=== PATIENT | male | born 1990 | race Caucasian/White ===

== ENCOUNTER 2016-12-01 18:48 | Inpatient (IN) | payer OTHER ==
[~2016-12-01] VITALS: Ht 175.3 cm; Wt 115.1 kg
[~2016-12-01 18:48] MED LIST: DIVA500T35 PO; FLUO-191 PO; QUET200T PO; QUET300T2 PO
[2016-12-01] MEDS ORDERED: PERTUSS(ACELL),DIPH,TET VAC/PF 0.5 ML VIAL IM ONE (20:15)
[2016-12-01] MEDS ORDERED: VANCOMYCIN HCL 1 GM/D5% WATER 200 ML IV ONE ×2 (20:15→23:00)
[2016-12-01 20:35] LABS: BASOPHILS % (AUTO) 0.7 % (0.0-2.0); EOSINOPHILS % (AUTO) 1.5 % (1.0-6.0); HEMATOCRIT 39.6 % (41-53); HEMOGLOBIN 13.2 g/dL (13.5-17.5); LYMPHOCYTES # (AUTO) 1.2 K/uL (1.0-4.8); LYMPHOCYTES % (AUTO) 13.6 % (22.0-44.0); MEAN CORPUSCULAR HEMOGLOBIN 29.6 pg (26.0-34.0); MEAN CORPUSCULAR HGB CONC 33.4 G/dL (31.0-37.0); MEAN CORPUSCULAR VOLUME 89 fL (80-100); MONOCYTES # (AUTO) 0.4 K/uL (0.1-1.0); MONOCYTES % (AUTO) 5.2 % (2.0-9.0); NEUTROPHILS # (AUTO) 6.8 K/uL (1.8-7.7); PLATELET COUNT (AUTO) 409 K/uL (150-450); RED BLOOD CELL COUNT(AUTO) 4.47 MIL/uL (4.50-5.90); RED CELL DISTRIBUTION WIDTH 13.3 % (11.5-14.5); WHITE BLOOD COUNT (AUTO) 8.6 K/uL (4.5-11.0)
[2016-12-01 20:44] LABS: ANION GAP 12 mmol/L (8-16); CALCIUM, TOTAL 8.4 mg/dL (8.8-10.5); CARBON DIOXIDE 25 mmol/L (22-29); CHLORIDE 101 mmol/L (98-107); CREATININE 0.67 mg/dL (0.60-1.30); GLOMERULAR FILTR. RATE CALC > 60 mL/min (>60); POTASSIUM 3.7 mmol/L (3.5-5.1); SODIUM SERUM 138 mmol/L (136-145); UREA NITROGEN, BLOOD 12 mg/dL (7-18)
[2016-12-01 20:51] LABS: ALANINE AMINOTRANSFERASE 51 U/L (12-78); ALBUMIN 3.3 g/dL (3.4-5.0); ASPARTATE AMINOTRANSFERASE 32 U/L (15-37); BILIRUBIN,TOTAL 0.8 mg/dL (0.1-1.0); TOTAL PROTEIN, SERUM 7.3 g/dL (6.4-8.2)
[2016-12-01 20:52] LABS: LACTIC ACID 0.6 mmol/L (0.4-2.0)
[2016-12-01] MEDS ORDERED: MAGNESIUM HYDROXIDE SUSPENSION 30 ML UDCUP PO PRN (22:00)
[2016-12-01] MEDS ORDERED: OxyCODONE HCL/ACETAMINOPHEN 5-325 MG TABLET PO PRN (22:00)
[2016-12-01] MEDS ORDERED: ACETAMINOPHEN 325 MG TABLET PO PRN (22:00)
[2016-12-01] MEDS ORDERED: SODIUM CHLORIDE 0.9% 1,000 ML IV ONE (22:15)
[2016-12-02 05:07] LABS: ANION GAP 10 mmol/L (8-16); CALCIUM, TOTAL 8.8 mg/dL (8.8-10.5); CARBON DIOXIDE 25 mmol/L (22-29); CHLORIDE 104 mmol/L (98-107); CREATININE 0.67 mg/dL (0.60-1.30); GLOMERULAR FILTR. RATE CALC > 60 mL/min (>60); POTASSIUM 3.9 mmol/L (3.5-5.1); SODIUM SERUM 139 mmol/L (136-145); UREA NITROGEN, BLOOD 8 mg/dL (7-18)
[2016-12-02] MEDS: VANCOMYCIN HCL 1.5 GM in DEXTROSE 5%-WATER 250 ML IV SCH ×2 (07:44→16:39)
[2016-12-02] MEDS: DOCUSATE SODIUM 100 MG CAPSULE PO SCH ×2 (08:11→21:25)
[2016-12-02] MEDS: PANTOPRAZOLE SODIUM 40 MG DR TABLET PO SCH (08:11)
[2016-12-02 09:46] VITALS: BP 125/77
[2016-12-02 12:08] VITALS: BP 135/76
[2016-12-02] MEDS: MORPHINE SULFATE 2 MG/ML SYRINGE IVP PRN ×3 (14:24→22:24)
[2016-12-02 15:54] VITALS: BP 121/61
[2016-12-02] MEDS ORDERED: INFLUENZA VIRUS VACCINE QVS 2016-17 (3YR+)/PF 60 MCG/0.5 ML SYRINGE IM ONE (19:30)
[2016-12-02 20:19] VITALS: BP 141/67
[2016-12-02] MEDS: QUEtiapine FUMARATE 200 MG TABLET PO SCH (21:25)
[2016-12-02 23:17] VITALS: BP 138/72
[2016-12-02] MEDS ORDERED: SODIUM CHLORIDE 0.9% 500 ML IV ONE (23:36)
[2016-12-03] MEDS: VANCOMYCIN HCL 1.5 GM in DEXTROSE 5%-WATER 250 ML IV SCH ×4 (01:21→23:29)
[2016-12-03 04:58] VITALS: BP 119/56
[2016-12-03 06:22] LABS: ANION GAP 8 mmol/L (8-16); CALCIUM, TOTAL 8.7 mg/dL (8.8-10.5); CARBON DIOXIDE 27 mmol/L (22-29); CHLORIDE 105 mmol/L (98-107); CREATININE 0.77 mg/dL (0.60-1.30); GLOMERULAR FILTR. RATE CALC > 60 mL/min (>60); POTASSIUM 3.5 mmol/L (3.5-5.1); SODIUM SERUM 140 mmol/L (136-145); UREA NITROGEN, BLOOD 6 mg/dL (7-18)
[2016-12-03 08:31] VITALS: BP 145/77
[2016-12-03] MEDS: QUEtiapine FUMARATE 200 MG TABLET PO SCH ×3 (08:44→20:08)
[2016-12-03] MEDS: DIVALPROEX SODIUM 500 MG DR TABLET PO SCH (08:44)
[2016-12-03] MEDS: FLUoxetine HCL 20 MG CAPSULE PO SCH (08:44)
[2016-12-03] MEDS: DOCUSATE SODIUM 100 MG CAPSULE PO SCH ×2 (08:44→20:08)
[2016-12-03] MEDS: PANTOPRAZOLE SODIUM 40 MG DR TABLET PO SCH (08:44)
[2016-12-03] MEDS: MORPHINE SULFATE 2 MG/ML SYRINGE IVP PRN ×2 (08:46→16:33)
[2016-12-03 11:48] VITALS: BP 141/76
[2016-12-03 16:13] VITALS: BP 144/77
[2016-12-03 23:34] VITALS: BP 142/89
[2016-12-04 06:55] LABS: ANION GAP 10 mmol/L (8-16); CALCIUM, TOTAL 8.8 mg/dL (8.8-10.5); CARBON DIOXIDE 27 mmol/L (22-29); CHLORIDE 105 mmol/L (98-107); CREATININE 0.71 mg/dL (0.60-1.30); GLOMERULAR FILTR. RATE CALC > 60 mL/min (>60); POTASSIUM 3.8 mmol/L (3.5-5.1); SODIUM SERUM 142 mmol/L (136-145); UREA NITROGEN, BLOOD 8 mg/dL (7-18)
[2016-12-04 07:42] VITALS: BP 133/70
[2016-12-04] MEDS: QUEtiapine FUMARATE 200 MG TABLET PO SCH ×2 (08:00→15:56)
[2016-12-04] MEDS: DIVALPROEX SODIUM 500 MG DR TABLET PO SCH (08:00)
[2016-12-04] MEDS: PANTOPRAZOLE SODIUM 40 MG DR TABLET PO SCH (08:01)
[2016-12-04] MEDS: DOCUSATE SODIUM 100 MG CAPSULE PO SCH (08:01)
[2016-12-04] MEDS: VANCOMYCIN HCL 1.5 GM in DEXTROSE 5%-WATER 250 ML IV SCH ×2 (08:01→15:55)
[2016-12-04] MEDS: FLUoxetine HCL 20 MG CAPSULE PO SCH (08:01)
[2016-12-04 11:41] VITALS: BP 134/69
[2016-12-04] MEDS: MORPHINE SULFATE 2 MG/ML SYRINGE IVP PRN (14:58)
[2016-12-04 15:14] VITALS: BP 144/93
[2016-12-04] MEDS ORDERED: OxyCODONE HCL/ACETAMINOPHEN 10-325 MG TABLET PO ONE (18:00)
[2016-12-04] MEDS ORDERED: OxyCODONE HCL/ACETAMINOPHEN 5-325 MG TABLET PO ONE (18:15)
[2016-12-04] MEDS ORDERED: DOXY100C PO (18:18)
[2016-12-04] MEDS ORDERED: PERCT10 PO ×2 (18:18→18:19)
== END 2016-12-04 18:30 | disposition home or self-care (01) | DRG 383 ==
LOC: EMS 18:50 → 6N 12-02 04:00
PROVIDERS: ADMIT Internal Medicine; ATTEND Internal Medicine
DX: L03.113 Cellulitis of right upper limb (principal); Q60.0 Renal agenesis, unilateral; F11.20 Opioid dependence, uncomplicated; E66.9 Obesity, unspecified; F41.9 Anxiety disorder, unspecified; F32.9 Major depressive disorder, single episode, unspecified; F17.210 Nicotine dependence, cigarettes, uncomplicated; F20.9 Schizophrenia, unspecified; F15.10 Other stimulant abuse, uncomplicated; F19.10 Other psychoactive substance abuse, uncomplicated; F12.90 Cannabis use, unspecified, uncomplicated; Z68.37 Body mass index [BMI] 37.0-37.9, adult
CPT/HCPCS: 83605; 87040; 90471; 90715; 96365; 96366; 99285; J2270; J3370; J7040; J7060

== ENCOUNTER 2017-01-07 02:23 | Inpatient (IN) | payer MEDICAID, OTHER ==
[~2017-01-07] VITALS: Ht 177.8 cm; Wt 115.5 kg
[~2017-01-07 02:23] MED LIST changes: +DOXY100C PO; +PERCT10 PO
[2017-01-07] MEDS ORDERED: DiphenhydrAMINE HCL 50 MG/ML VIAL ONE (02:35)
[2017-01-07] MEDS ORDERED: HALOPERIDOL LACTATE 5 MG/ML VIAL ONE (02:35)
[2017-01-07] MEDS ORDERED: LORazepam 2 MG/ML VIAL ONE (02:35)
[2017-01-07] MEDS ORDERED: DIVA500T35 PO ×2 (02:42)
[2017-01-07] MEDS ORDERED: BUSP15 PO (02:42)
[2017-01-07] MEDS ORDERED: ZIPR80CA2 PO (02:42)
[2017-01-07] MEDS ORDERED: PALI3 PO (02:42)
[2017-01-07] MEDS ORDERED: DiphenhydrAMINE HCL 50 MG/ML VIAL IM ONE (02:45)
[2017-01-07] MEDS ORDERED: HALOPERIDOL LACTATE 5 MG/ML VIAL IM ONE (02:45)
[2017-01-07] MEDS ORDERED: LORazepam 2 MG/ML VIAL IM ONE (02:45)
[2017-01-07 05:36] LABS: BASOPHILS # (AUTO) 0.18 K/uL (0.00-0.20); BASOPHILS % (AUTO) 2.6 % (0.0-2.0); EOSINOPHILS # (AUTO) 0.38 K/uL (0.00-0.70); EOSINOPHILS % (AUTO) 5.43 % (1.0-6.0); HEMATOCRIT 34.9 % (41-53); HEMOGLOBIN 11.8 g/dL (13.5-17.5); LYMPHOCYTES % (AUTO) 28.6 % (22.0-44.0); MEAN CORPUSCULAR HGB CONC 33.8 G/dL (31.0-37.0); MEAN CORPUSCULAR VOLUME 89 fL (80-100); MONOCYTES # (AUTO) 0.5 K/uL (0.1-1.0); MONOCYTES % (AUTO) 6.7 % (2.0-9.0); NEUTROPHILS % (AUTO) 56.7 % (40.0-70.0); PLATELET COUNT (AUTO) 461 K/uL (150-450); RED BLOOD CELL COUNT(AUTO) 3.93 MIL/uL (4.50-5.90); RED CELL DISTRIBUTION WIDTH 14.5 % (11.5-14.5); WHITE BLOOD COUNT (AUTO) 7.1 K/uL (4.5-11.0)
[2017-01-07 06:02] LABS: ALANINE AMINOTRANSFERASE 38 U/L (12-78); ALBUMIN 3.2 g/dL (3.4-5.0); ANION GAP 7 mmol/L (8-16); ASPARTATE AMINOTRANSFERASE 29 U/L (15-37); BILIRUBIN,TOTAL 0.4 mg/dL (0.1-1.0); CALCIUM, TOTAL 8.6 mg/dL (8.8-10.5); CARBON DIOXIDE 31 mmol/L (22-29); CHLORIDE 102 mmol/L (98-107); CREATININE 0.87 mg/dL (0.60-1.30); GLOMERULAR FILTR. RATE CALC > 60 mL/min (>60); POTASSIUM 3.9 mmol/L (3.5-5.1); SODIUM SERUM 140 mmol/L (136-145); TOTAL PROTEIN, SERUM 7.5 g/dL (6.4-8.2); UREA NITROGEN, BLOOD 10 mg/dL (7-18)
[2017-01-07] MEDS ORDERED: QUEtiapine FUMARATE 100 MG TABLET PO PRN (11:30)
[2017-01-07] MEDS ORDERED: MAG HYDROX/AL HYDROX/SIMETH ES 30 ML SUSPENSION UDCUP PO PRN (11:45)
[2017-01-07] MEDS ORDERED: LOPERAMIDE HCL 2 MG CAPSULE PO PRN (11:45)
[2017-01-07] MEDS ORDERED: MAGNESIUM HYDROXIDE SUSPENSION 30 ML UDCUP PO PRN (11:45)
[2017-01-07] MEDS ORDERED: CYANOCOBALAMIN 1,000 MCG/ML VIAL IM ONE (11:45)
[2017-01-07] MEDS ORDERED: TUBERCULIN, PURIFIED PROTEIN DERIVATIVE 5 TU/0.1 ML SYG ID ONE (11:45)
[2017-01-07] MEDS ORDERED: GuaiFENesin/D-METHORPHAN [SUGAR-FREE] 200-20MG/10 ML SYRUP UDCUP PO PRN (11:45)
[2017-01-07] MEDS ORDERED: PROMETHAZINE HCL 25 MG TABLET PO PRN (11:45)
[2017-01-07] MEDS ORDERED: ACETAMINOPHEN 325 MG TABLET PO PRN ×2 (11:45→21:30)
[2017-01-07] MEDS ORDERED: PALIPERIDONE 3 MG ER TABLET PO PRN (11:45)
[2017-01-07 14:40] VITALS: BP 122/73
[2017-01-07 16:00] VITALS: BP 130/73
[2017-01-07] MEDS ORDERED: PALIPERIDONE PALMITATE 234 MG/1.5 ML SYRINGE IM ONE (16:00)
[2017-01-07] MEDS: LORazepam 2 MG TABLET PO PRN (16:56)
[2017-01-07] MEDS: HydrOXYzine PAMOATE 50 MG CAPSULE PO PRN (16:56)
[2017-01-07] MEDS: THIAMINE HCL 100 MG TABLET PO SCH (16:56)
[2017-01-07] MEDS: SULFAMETHOX/TRIMETH DS 800-160 MG/TABLET PO SCH (16:56)
[2017-01-07] MEDS: CEPHALEXIN MONOHYDRATE 500 MG CAPSULE PO SCH (16:56)
[2017-01-07] MEDS: MUPIROCIN CALCIUM 2% 22 GM OINTMENT NASAL SCH (17:00)
[2017-01-07] MEDS: DIVALPROEX SODIUM 500 MG DR TABLET PO SCH (21:11)
[2017-01-07] MEDS ORDERED: IBUPROFEN 400 MG TABLET PO PRN (21:30)
[2017-01-07] MEDS: PALIPERIDONE 3 MG ER TABLET PO SCH (22:11)
[2017-01-08] MEDS: CEPHALEXIN MONOHYDRATE 500 MG CAPSULE PO SCH ×3 (01:17→16:05)
[2017-01-08] MEDS: ZOLPIDEM TARTRATE 10 MG TABLET PO PRN ×2 (01:50→22:32)
[2017-01-08 06:34] VITALS: BP 126/72
[2017-01-08 08:05] VITALS: BP 127/80
[2017-01-08] MEDS: MUPIROCIN CALCIUM 2% 22 GM OINTMENT NASAL SCH ×2 (09:00→17:35)
[2017-01-08] MEDS: FOLIC ACID 1 MG TABLET PO SCH (10:04)
[2017-01-08] MEDS: MULTIVITAMINS WITH MINERALS, THERAPEUTIC TABLET PO SCH (10:04)
[2017-01-08] MEDS: SULFAMETHOX/TRIMETH DS 800-160 MG/TABLET PO SCH ×2 (10:04→17:13)
[2017-01-08] MEDS: DIVALPROEX SODIUM 500 MG DR TABLET PO SCH ×2 (10:05→21:01)
[2017-01-08] MEDS: THIAMINE HCL 100 MG TABLET PO SCH ×2 (10:05→17:15)
[2017-01-08] MEDS: LORazepam 2 MG TABLET PO PRN (10:06)
[2017-01-08] MEDS: HydrOXYzine PAMOATE 50 MG CAPSULE PO PRN ×2 (10:07→20:59)
[2017-01-08 10:09] VITALS: BP 127/80
[2017-01-08] MEDS ORDERED: LORazepam 2 MG/ML VIAL IM ONE (10:45)
[2017-01-08] MEDS ORDERED: DiphenhydrAMINE HCL 50 MG/ML VIAL IM ONE (10:45)
[2017-01-08] MEDS ORDERED: HALOPERIDOL LACTATE 5 MG/ML VIAL IM ONE (10:45)
[2017-01-08] MEDS: CHLORHEXIDINE GLUCONATE 4% 118 ML TOPICAL LIQUID TP SCH (11:15)
[2017-01-08] MEDS: MUPIROCIN CALCIUM 2% 15 GM CREAM TP SCH (11:15)
[2017-01-08 16:26] VITALS: BP 139/88
[2017-01-08] MEDS: PALIPERIDONE 3 MG ER TABLET PO SCH (21:01)
[2017-01-09] MEDS: CEPHALEXIN MONOHYDRATE 500 MG CAPSULE PO SCH ×3 (00:04→20:05)
[2017-01-09] MEDS: LORazepam 2 MG TABLET PO PRN (06:21)
[2017-01-09 07:34] LABS: CHOL/HDL RATIO 4.5 (4.2-7.3)
[2017-01-09] MEDS ORDERED: DiphenhydrAMINE HCL 50 MG/ML VIAL IM ONE ×2 (08:15→11:00)
[2017-01-09] MEDS ORDERED: LORazepam 2 MG/ML VIAL IM ONE ×2 (08:15→11:00)
[2017-01-09] MEDS ORDERED: HALOPERIDOL LACTATE 5 MG/ML VIAL IM ONE ×2 (08:15→11:00)
[2017-01-09 08:30] VITALS: BP 120/79
[2017-01-09] MEDS: CHLORHEXIDINE GLUCONATE 4% 118 ML TOPICAL LIQUID TP SCH (09:00)
[2017-01-09] MEDS ORDERED: CloNIDine HCL 0.1 MG TABLET PO PRN (11:15)
[2017-01-09] MEDS ORDERED: MAG HYDROX/AL HYDROX/SIMETH ES 30 ML SUSPENSION UDCUP PO PRN (11:15)
[2017-01-09] MEDS ORDERED: HydrOXYzine PAMOATE 50 MG CAPSULE PO PRN (11:15)
[2017-01-09] MEDS ORDERED: IBUPROFEN 600 MG TABLET PO PRN (11:15)
[2017-01-09] MEDS ORDERED: PROMETHAZINE HCL 25 MG/ML VIAL IM PRN (11:15)
[2017-01-09 13:00] VITALS: BP 131/84
[2017-01-09] MEDS: SULFAMETHOX/TRIMETH DS 800-160 MG/TABLET PO SCH ×2 (13:14→17:57)
[2017-01-09] MEDS: DIVALPROEX SODIUM 500 MG DR TABLET PO SCH ×2 (13:14→20:06)
[2017-01-09] MEDS: MULTIVITAMINS WITH MINERALS, THERAPEUTIC TABLET PO SCH (13:14)
[2017-01-09] MEDS: THIAMINE HCL 100 MG TABLET PO SCH ×2 (13:15→17:57)
[2017-01-09] MEDS: FOLIC ACID 1 MG TABLET PO SCH (13:15)
[2017-01-09] MEDS: MUPIROCIN CALCIUM 2% 22 GM OINTMENT NASAL SCH ×2 (13:16→17:57)
[2017-01-09] MEDS: MUPIROCIN CALCIUM 2% 15 GM CREAM TP SCH (13:22)
[2017-01-09] MEDS: TraZODone HCL 100 MG TABLET PO SCH ×2 (13:23→17:56)
[2017-01-09] MEDS: CloNIDine HCL 0.1 MG TABLET PO SCH ×3 (13:24→22:00)
[2017-01-09 17:05] VITALS: BP 110/72
[2017-01-09 20:05] VITALS: BP 116/72
[2017-01-09] MEDS: PALIPERIDONE 3 MG ER TABLET PO SCH (20:06)
[2017-01-10] VITALS (8 sets, daily range): BP systolic 114–140; BP diastolic 60–79
[2017-01-10] MEDS: CEPHALEXIN MONOHYDRATE 500 MG CAPSULE PO SCH ×4 (00:56→23:54)
[2017-01-10] MEDS: CloNIDine HCL 0.1 MG TABLET PO SCH ×4 (06:06→22:04)
[2017-01-10] MEDS: MULTIVITAMINS WITH MINERALS, THERAPEUTIC TABLET PO SCH (08:17)
[2017-01-10] MEDS: DIVALPROEX SODIUM 500 MG DR TABLET PO SCH ×2 (08:17→21:45)
[2017-01-10] MEDS: TraZODone HCL 100 MG TABLET PO SCH ×3 (08:17→16:26)
[2017-01-10] MEDS: THIAMINE HCL 100 MG TABLET PO SCH ×2 (08:17→16:27)
[2017-01-10] MEDS: SULFAMETHOX/TRIMETH DS 800-160 MG/TABLET PO SCH ×2 (08:18→16:26)
[2017-01-10] MEDS: MUPIROCIN CALCIUM 2% 22 GM OINTMENT NASAL SCH ×2 (08:18→16:29)
[2017-01-10] MEDS: FOLIC ACID 1 MG TABLET PO SCH (08:18)
[2017-01-10] MEDS: MUPIROCIN CALCIUM 2% 15 GM CREAM TP SCH (08:19)
[2017-01-10] MEDS: CHLORHEXIDINE GLUCONATE 4% 118 ML TOPICAL LIQUID TP SCH (08:20)
[2017-01-10] MEDS: LORazepam 2 MG TABLET PO PRN (08:23)
[2017-01-10] MEDS: PALIPERIDONE 3 MG ER TABLET PO SCH (21:46)
[2017-01-11] MEDS: CloNIDine HCL 0.1 MG TABLET PO SCH ×4 (06:00→22:02)
[2017-01-11 06:38] VITALS: BP 119/59
[2017-01-11 08:40] VITALS: BP 117/77
[2017-01-11] MEDS: DIVALPROEX SODIUM 500 MG DR TABLET PO SCH ×2 (08:40→19:57)
[2017-01-11] MEDS: CEPHALEXIN MONOHYDRATE 500 MG CAPSULE PO SCH ×3 (08:40→23:57)
[2017-01-11] MEDS: SULFAMETHOX/TRIMETH DS 800-160 MG/TABLET PO SCH ×2 (08:40→15:42)
[2017-01-11] MEDS: MULTIVITAMINS WITH MINERALS, THERAPEUTIC TABLET PO SCH (08:40)
[2017-01-11] MEDS: TraZODone HCL 100 MG TABLET PO SCH ×3 (08:41→15:43)
[2017-01-11] MEDS: THIAMINE HCL 100 MG TABLET PO SCH ×2 (08:41→15:43)
[2017-01-11] MEDS: FOLIC ACID 1 MG TABLET PO SCH (08:41)
[2017-01-11] MEDS: MUPIROCIN CALCIUM 2% 15 GM CREAM TP SCH (08:41)
[2017-01-11] MEDS: MUPIROCIN CALCIUM 2% 22 GM OINTMENT NASAL SCH ×2 (08:42→15:48)
[2017-01-11] MEDS: CHLORHEXIDINE GLUCONATE 4% 118 ML TOPICAL LIQUID TP SCH (08:42)
[2017-01-11] MEDS ORDERED: PALIPERIDONE PALMITATE 156 MG/ML SYRINGE IM ONE (09:00)
[2017-01-11] MEDS: LORazepam 2 MG TABLET PO PRN ×2 (09:14→15:44)
[2017-01-11 12:46] VITALS: BP 103/65
[2017-01-11 17:15] VITALS: BP 126/79
[2017-01-11] MEDS: PALIPERIDONE 3 MG ER TABLET PO SCH (19:56)
[2017-01-11 21:55] VITALS: BP 120/76
[2017-01-12 05:57] VITALS: BP 130/90
[2017-01-12] MEDS: CloNIDine HCL 0.1 MG TABLET PO SCH ×2 (06:13→12:48)
[2017-01-12 08:14] VITALS: BP 134/77
[2017-01-12] MEDS: SULFAMETHOX/TRIMETH DS 800-160 MG/TABLET PO SCH (08:28)
[2017-01-12] MEDS: DIVALPROEX SODIUM 500 MG DR TABLET PO SCH (08:29)
[2017-01-12] MEDS: THIAMINE HCL 100 MG TABLET PO SCH (08:30)
[2017-01-12] MEDS: MULTIVITAMINS WITH MINERALS, THERAPEUTIC TABLET PO SCH (08:30)
[2017-01-12] MEDS: CEPHALEXIN MONOHYDRATE 500 MG CAPSULE PO SCH (08:30)
[2017-01-12] MEDS: FOLIC ACID 1 MG TABLET PO SCH (08:30)
[2017-01-12] MEDS: TraZODone HCL 100 MG TABLET PO SCH ×2 (08:30→12:48)
[2017-01-12] MEDS: MUPIROCIN CALCIUM 2% 15 GM CREAM TP SCH (09:00)
[2017-01-12] MEDS: CHLORHEXIDINE GLUCONATE 4% 118 ML TOPICAL LIQUID TP SCH (09:00)
[2017-01-12 09:15] VITALS: BP 134/77
[2017-01-12] MEDS: MUPIROCIN CALCIUM 2% 22 GM OINTMENT NASAL SCH (11:10)
[2017-01-12] MEDS ORDERED: TRAZ-147 PO (12:59)
[2017-01-12] MEDS ORDERED: CEPH500 PO (12:59)
[2017-01-12] MEDS ORDERED: SULF1TAB42 PO (12:59)
== END 2017-01-12 14:22 | disposition home or self-care (01) | DRG 750 ==
LOC: EMS 02:24 → B3A 13:48 → 3EC 19:15 → 3EI 01-11 20:15
PROVIDERS: ADMIT Psychiatry & Neurology Psychiatry; ATTEND Psychiatry & Neurology Psychiatry
PROC: HZ37ZZZ Individual Counseling for Substance Abuse Treatment, Motivational Enhancement (ICD-10-PCS; principal; 2017-01-08)
DX: F25.0 Schizoaffective disorder, bipolar type (principal); Q60.0 Renal agenesis, unilateral; R45.851 Suicidal ideations; R41.9 Unspecified symptoms and signs involving cognitive functions and awareness; F15.10 Other stimulant abuse, uncomplicated; F12.10 Cannabis abuse, uncomplicated; F11.10 Opioid abuse, uncomplicated; F17.210 Nicotine dependence, cigarettes, uncomplicated; Z79.899 Other long term (current) drug therapy; Z91.14 Patient's other noncompliance with medication regimen; Z71.6 Tobacco abuse counseling; Z71.51 Drug abuse counseling and surveillance of drug abuser
CPT/HCPCS: 83036; 87081; 96372; 99285; G0480; J1200; J1630; J2060; J3420

== ENCOUNTER 2017-07-19 21:34 | Emergency (ER) | payer MEDICAID, OTHER ==
[~2017-07-19] VITALS: Ht 177.8 cm; Wt 172.5 kg
[~2017-07-19 21:34] MED LIST changes: +CEPH500 PO; -DOXY100C PO; -FLUO-191 PO; +PALI3 PO; -PERCT10 PO; -QUET200T PO; -QUET300T2 PO; +SULF1TAB42 PO; +TRAZ-147 PO
[2017-07-19 21:52] VITALS: BP 140/74
== END 2017-07-19 22:27 | disposition home or self-care (01) ==
LOC: EMS 21:36
DX: K02.9 Dental caries, unspecified (principal); R51 Headache; F17.210 Nicotine dependence, cigarettes, uncomplicated; F12.90 Cannabis use, unspecified, uncomplicated; F11.10 Opioid abuse, uncomplicated; F19.90 Other psychoactive substance use, unspecified, uncomplicated
CPT/HCPCS: 99283

== ENCOUNTER 2017-12-18 12:35 | Emergency (ER) | payer OTHER ==
[~2017-12-18] VITALS: Ht 177.8 cm; Wt 124.5 kg
[2017-12-18] MEDS ORDERED: PENI500T2 PO (12:41)
[2017-12-18] MEDS ORDERED: QUET25TA PO (12:41)
[2017-12-18] MEDS ORDERED: PALI1.5T PO (12:41)
[2017-12-18 13:21] VITALS: BP 132/87
== END 2017-12-18 14:18 | disposition home or self-care (01) ==
LOC: EMS 12:36
DX: K02.9 Dental caries, unspecified (principal); R03.0 Elevated blood-pressure reading, without diagnosis of hypertension; F11.90 Opioid use, unspecified, uncomplicated; F12.90 Cannabis use, unspecified, uncomplicated; F15.90 Other stimulant use, unspecified, uncomplicated; F17.210 Nicotine dependence, cigarettes, uncomplicated
CPT/HCPCS: 99283

== ENCOUNTER 2018-01-12 13:17 | Inpatient (IN) | payer MEDICAID, OTHER ==
[~2018-01-12] VITALS: Ht 177.8 cm; Wt 120.7 kg
[~2018-01-12 13:17] MED LIST changes: -CEPH500 PO; -DIVA500T35 PO; +PALI1.5T IM; -PALI3 PO; +PENI500T2 PO; +QUET25TA PO; -SULF1TAB42 PO; -TRAZ-147 PO
[2018-01-12] MEDS ORDERED: RISP.5 PO (13:39)
[2018-01-12] MEDS ORDERED: ELBA1TAB PO (13:41)
[2018-01-12 13:47] LABS: BASOPHILS % (AUTO) 0.7 % (0.0-2.0); EOSINOPHILS % (AUTO) 2.9 % (1.0-6.0); HEMATOCRIT 39.1 % (41-53); HEMOGLOBIN 13.9 g/dL (13.5-17.5); LYMPHOCYTES # (AUTO) 2.2 K/uL (1.0-4.8); LYMPHOCYTES % (AUTO) 26.6 % (22.0-44.0); MEAN CORPUSCULAR HEMOGLOBIN 31.2 pg (26.0-34.0); MEAN CORPUSCULAR HGB CONC 35.6 G/dL (31.0-37.0); MEAN CORPUSCULAR VOLUME 88 fL (80-100); MONOCYTES # (AUTO) 0.5 K/uL (0.1-1.0); NEUTROPHILS # (AUTO) 5.3 K/uL (1.8-7.7); NEUTROPHILS % (AUTO) 63.8 % (40.0-70.0); PLATELET COUNT (AUTO) 367 K/uL (150-450); RED BLOOD CELL COUNT(AUTO) 4.46 MIL/uL (4.50-5.90); RED CELL DISTRIBUTION WIDTH 13.7 % (11.5-14.5)
[2018-01-12 13:56] LABS: ANION GAP 9 mmol/L (8-16); CALCIUM, TOTAL 9.5 mg/dL (8.8-10.5); CARBON DIOXIDE 26 mmol/L (22-29); CHLORIDE 101 mmol/L (98-107); CREATININE 0.95 mg/dL (0.60-1.30); GLOMERULAR FILTR. RATE CALC > 60 mL/min (>60); GLUCOSE,RANDOM 75 mg/dL (70-110); POTASSIUM 3.9 mmol/L (3.5-5.1); SODIUM SERUM 136 mmol/L (136-145); UREA NITROGEN, BLOOD 12 mg/dL (7-18)
[2018-01-12 14:02] LABS: ALANINE AMINOTRANSFERASE 29 U/L (12-78); ALBUMIN 4.3 g/dL (3.4-5.0); ALKALINE PHOSPHATASE 107 U/L (46-116); ASPARTATE AMINOTRANSFERASE 21 U/L (15-37); BILIRUBIN,TOTAL 0.7 mg/dL (0.1-1.0); TOTAL PROTEIN, SERUM 7.9 g/dL (6.4-8.2)
[2018-01-12] MEDS ORDERED: PALI234D IM (14:26)
[2018-01-12] MEDS ORDERED: DiphenhydrAMINE HCL 50 MG CAPSULE PO ONE (14:30)
[2018-01-12] MEDS ORDERED: LORazepam 2 MG TABLET PO ONE (14:30)
[2018-01-12] MEDS ORDERED: HALOPERIDOL 5 MG TABLET PO ONE (14:30)
[2018-01-12 14:42] LABS: AMPHET/METH SCREEN,URINE POSITIVE (NEGATIVE); BARBITURATE SCREEN, URINE NEGATIVE (NEGATIVE); BENZODIAZEPINES SCREEN,URINE NEGATIVE (NEGATIVE); CANNABINOID SCREEN,URINE POSITIVE (NEGATIVE); COCAINE SCREEN,URINE NEGATIVE (NEGATIVE); METHADONE SCREEN, URINE NEGATIVE (NEGATIVE); OPIATE SCREEN,URINE NEGATIVE (NEGATIVE); PHENCYCLIDINE SCREEN,URINE NEGATIVE (NEGATIVE)
[2018-01-12] MEDS ORDERED: ZOLPIDEM TARTRATE 10 MG TABLET PO PRN (15:00)
[2018-01-12 15:26] LABS: CHOL/HDL RATIO 4.5 (4.2-7.3); CHOLESTEROL 148 mg/dL (131-200); FREE T4 (FREE THYROXINE) 0.83 ng/dL (0.76-1.46); HDL CHOLESTEROL 33 mg/dL (40-60); LDL CHOL (CALC.) 86 mg/dL (0-130); THYROID STIMULATING HORMONE 0.95 uIU/mL (0.36-3.74); TRIGLYCERIDES 144 mg/dL (15-150)
[2018-01-12 18:50] VITALS: BP 128/68
[2018-01-12] MEDS: RisperiDONE 2 MG TABLET PO SCH (21:55)
[2018-01-12] MEDS: ELBASVIR PO SCH (22:56)
[2018-01-12] MEDS: GRAZOPREVIR PO SCH (22:56)
[2018-01-13] MEDS: RisperiDONE 2 MG TABLET PO SCH ×2 (08:27→21:13)
[2018-01-13] MEDS: GRAZOPREVIR PO SCH (08:27)
[2018-01-13] MEDS: ELBASVIR PO SCH (08:27)
[2018-01-13] MEDS ORDERED: NICOTINE 14 MG/24 HOUR PATCH TD SCH (09:00)
[2018-01-13 09:34] VITALS: BP 129/75
[2018-01-13] MEDS ORDERED: QUET300T2 PO (15:14)
[2018-01-13] MEDS: NICOTINE 21 MG/24 HOUR PATCH TD SCH (16:43)
[2018-01-13 17:00] VITALS: BP 122/77
[2018-01-13] MEDS: LORazepam 2 MG TABLET PO PRN (17:06)
[2018-01-13] MEDS: HALOPERIDOL 5 MG TABLET PO PRN (17:06)
[2018-01-14 00:30] VITALS: BP 125/72
[2018-01-14 08:48] VITALS: BP 120/77
[2018-01-14] MEDS: HALOPERIDOL 5 MG TABLET PO PRN ×2 (08:52→14:17)
[2018-01-14] MEDS: LORazepam 2 MG TABLET PO PRN ×2 (08:52→14:17)
[2018-01-14] MEDS: NICOTINE 21 MG/24 HOUR PATCH TD SCH (08:52)
[2018-01-14] MEDS: RisperiDONE 2 MG TABLET PO SCH ×2 (08:52→20:08)
[2018-01-14] MEDS: GRAZOPREVIR PO SCH (08:53)
[2018-01-14] MEDS: ELBASVIR PO SCH (08:53)
[2018-01-14 20:00] VITALS: BP 124/92
[2018-01-15 04:05] VITALS: BP 109/64
[2018-01-15] MEDS: LORazepam 2 MG TABLET PO PRN ×2 (04:07→08:11)
[2018-01-15] MEDS: RisperiDONE 2 MG TABLET PO SCH ×2 (08:11→20:48)
[2018-01-15] MEDS: HALOPERIDOL 5 MG TABLET PO PRN (08:11)
[2018-01-15] MEDS: NICOTINE 21 MG/24 HOUR PATCH TD SCH (08:11)
[2018-01-15] MEDS: ELBASVIR PO SCH (08:12)
[2018-01-15] MEDS: GRAZOPREVIR PO SCH (08:12)
[2018-01-15] MEDS ORDERED: LORazepam 2 MG/ML VIAL ONE (11:29)
[2018-01-15] MEDS ORDERED: HALOPERIDOL LACTATE 5 MG/ML VIAL IM ONE (11:30)
[2018-01-15] MEDS ORDERED: LORazepam 2 MG/ML VIAL IM ONE (11:30)
[2018-01-15] MEDS ORDERED: DiphenhydrAMINE HCL 50 MG/ML VIAL IM ONE (11:30)
[2018-01-15] MEDS ORDERED: HALOPERIDOL LACTATE 5 MG/ML VIAL ONE (11:31)
[2018-01-16] MEDS: RisperiDONE 2 MG TABLET PO SCH (08:32)
[2018-01-16] MEDS: HALOPERIDOL 5 MG TABLET PO PRN (08:33)
[2018-01-16] MEDS: LORazepam 2 MG TABLET PO PRN (08:33)
[2018-01-16] MEDS: GRAZOPREVIR PO SCH (08:33)
[2018-01-16] MEDS: ELBASVIR PO SCH (08:33)
[2018-01-16] MEDS: NICOTINE 21 MG/24 HOUR PATCH TD SCH (09:00)
[2018-01-16] MEDS: FLUoxetine HCL 20 MG CAPSULE PO SCH (10:51)
[2018-01-16] MEDS ORDERED: IBUPROFEN 400 MG TABLET PO PRN (12:15)
[2018-01-16] MEDS ORDERED: ACETAMINOPHEN 325 MG TABLET PO PRN (12:15)
[2018-01-16] MEDS: QUEtiapine FUMARATE 100 MG TABLET PO PRN (12:19)
[2018-01-16] MEDS ORDERED: QUEtiapine FUMARATE 200 MG TABLET PO SCH (21:00)
[2018-01-17] MEDS: GRAZOPREVIR PO SCH (08:40)
[2018-01-17] MEDS: FLUoxetine HCL 20 MG CAPSULE PO SCH (08:40)
[2018-01-17] MEDS: ELBASVIR PO SCH (08:40)
[2018-01-17] MEDS: NICOTINE 21 MG/24 HOUR PATCH TD SCH (08:42)
[2018-01-17] MEDS: LORazepam 2 MG TABLET PO PRN (08:43)
[2018-01-17] MEDS: QUEtiapine FUMARATE 100 MG TABLET PO PRN (08:44)
[2018-01-17 08:53] VITALS: BP 131/86
[2018-01-20] MEDS ORDERED: PALIPERIDONE PALMITATE 234 MG/1.5 ML SYRINGE IM SCH (09:00)
== END 2018-01-17 15:52 | disposition home or self-care (01) | DRG 750 ==
LOC: EMS 13:17 → 3EI 18:27 → 3EC 01-15 19:06
DX: F20.0 Paranoid schizophrenia (principal); R45.851 Suicidal ideations; K74.60 Unspecified cirrhosis of liver; Z78.1 Physical restraint status; F19.10 Other psychoactive substance abuse, uncomplicated; F15.10 Other stimulant abuse, uncomplicated; B18.2 Chronic viral hepatitis C; F11.90 Opioid use, unspecified, uncomplicated; F12.10 Cannabis abuse, uncomplicated; F17.210 Nicotine dependence, cigarettes, uncomplicated; Z79.899 Other long term (current) drug therapy; Z91.5 Personal history of self-harm
CPT/HCPCS: 84439; 84443; 87081; 99285; 99406; G0480; J1630; J2060

== ENCOUNTER 2018-01-21 09:21 | Emergency (ER) | payer MEDICAID ==
[~2018-01-21 09:21] MED LIST changes: +ELBA1TAB PO; -PALI1.5T IM; -PENI500T2 PO; -QUET25TA PO
== END 2018-01-21 10:43 | disposition left against medical advice (07) ==
LOC: EMS 09:21
DX: M79.676 Pain in unspecified toe(s) (principal); Z53.21 Procedure and treatment not carried out due to patient leaving prior to being seen by health care provider

== ENCOUNTER 2018-02-24 14:23 | Inpatient (IN) | payer MEDICAID, OTHER ==
[~2018-02-24] VITALS: Ht 175.3 cm; Wt 120.4 kg
[2018-02-24] MEDS ORDERED: PALI78DI IM (16:21)
[2018-02-24] MEDS ORDERED: FLUO-191 PO (16:21)
[2018-02-24] MEDS ORDERED: QUET200T PO (16:21)
[2018-02-24 17:11] LABS: BASOPHILS % (AUTO) 1.1 % (0.0-2.0); EOSINOPHILS % (AUTO) 2.2 % (1.0-6.0); HEMATOCRIT 40.7 % (41-53); HEMOGLOBIN 14.3 g/dL (13.5-17.5); LYMPHOCYTES # (AUTO) 2.4 K/uL (1.0-4.8); LYMPHOCYTES % (AUTO) 25.1 % (22.0-44.0); MEAN CORPUSCULAR HEMOGLOBIN 30.9 pg (26.0-34.0); MEAN CORPUSCULAR HGB CONC 35.1 G/dL (31.0-37.0); MEAN CORPUSCULAR VOLUME 88 fL (80-100); MONOCYTES # (AUTO) 0.5 K/uL (0.1-1.0); MONOCYTES % (AUTO) 5.6 % (2.0-9.0); NEUTROPHILS # (AUTO) 6.2 K/uL (1.8-7.7); PLATELET COUNT (AUTO) 391 K/uL (150-450); RED BLOOD CELL COUNT(AUTO) 4.62 MIL/uL (4.50-5.90); RED CELL DISTRIBUTION WIDTH 13.4 % (11.5-14.5)
[2018-02-24 17:25] LABS: ANION GAP 8 mmol/L (8-16); CARBON DIOXIDE 28 mmol/L (22-29); CHLORIDE 106 mmol/L (98-107); CREATININE 0.97 mg/dL (0.60-1.30); GLOMERULAR FILTR. RATE CALC > 60 mL/min (>60); GLUCOSE,RANDOM 80 mg/dL (70-110); POTASSIUM 4.2 mmol/L (3.5-5.1); SODIUM SERUM 142 mmol/L (136-145); UREA NITROGEN, BLOOD 10 mg/dL (7-18)
[2018-02-24 17:27] LABS: AMPHET/METH SCREEN,URINE POSITIVE (NEGATIVE); BARBITURATE SCREEN, URINE NEGATIVE (NEGATIVE); BENZODIAZEPINES SCREEN,URINE NEGATIVE (NEGATIVE); CANNABINOID SCREEN,URINE POSITIVE (NEGATIVE); COCAINE SCREEN,URINE NEGATIVE (NEGATIVE); METHADONE SCREEN, URINE NEGATIVE (NEGATIVE); OPIATE SCREEN,URINE NEGATIVE (NEGATIVE)
[2018-02-24 17:28] LABS: PHENCYCLIDINE SCREEN,URINE NEGATIVE (NEGATIVE)
[2018-02-24 17:32] LABS: ALANINE AMINOTRANSFERASE 24 U/L (12-78); ALBUMIN 3.9 g/dL (3.4-5.0); ALKALINE PHOSPHATASE 95 U/L (46-116); ASPARTATE AMINOTRANSFERASE 21 U/L (15-37); BILIRUBIN,TOTAL 0.8 mg/dL (0.1-1.0); TOTAL PROTEIN, SERUM 7.7 g/dL (6.4-8.2)
[2018-02-24] MEDS ORDERED: ZOLPIDEM TARTRATE 10 MG TABLET PO PRN (19:45)
[2018-02-24] MEDS ORDERED: HALOPERIDOL 5 MG TABLET PO PRN (19:45)
[2018-02-24] MEDS ORDERED: OLANZapine 5 MG RAPDIS TABLET PO PRN (21:15)
[2018-02-25 01:07] VITALS: BP 128/80
[2018-02-25 01:12] VITALS: BP 128/80
[2018-02-25] MEDS ORDERED: PNEUMOCOCCAL VACCINE POLYVALENT 0.5 ML VIAL [PPSV23] IM ONE (01:30)
[2018-02-25 08:27] VITALS: BP 128/77
[2018-02-25 08:37] LABS: CHOL/HDL RATIO 5.5 (4.2-7.3)
[2018-02-25] MEDS: LORazepam 2 MG TABLET PO PRN ×2 (12:30→17:10)
[2018-02-25] MEDS ORDERED: ACETAMINOPHEN 325 MG TABLET PO PRN ×2 (13:30→16:30)
[2018-02-25] MEDS ORDERED: IBUPROFEN 400 MG TABLET PO PRN (13:30)
[2018-02-25 16:15] VITALS: BP 135/76
[2018-02-25] MEDS ORDERED: LOPERAMIDE HCL 2 MG CAPSULE PO PRN (16:30)
[2018-02-25] MEDS ORDERED: MAG HYDROX/AL HYDROX/SIMETH ES 30 ML SUSPENSION UDCUP PO PRN (16:30)
[2018-02-25] MEDS ORDERED: TUBERCULIN, PURIFIED PROTEIN DERIVATIVE 5 TU/0.1 ML SYG ID ONE (16:30)
[2018-02-25] MEDS ORDERED: PALIPERIDONE PALMITATE 234 MG/1.5 ML SYRINGE IM ONE (16:30)
[2018-02-25] MEDS ORDERED: PALIPERIDONE 1.5 MG ER TABLET PO PRN (16:30)
[2018-02-25] MEDS ORDERED: HydrOXYzine PAMOATE 50 MG CAPSULE PO PRN (16:30)
[2018-02-25] MEDS ORDERED: MAGNESIUM HYDROXIDE SUSPENSION 30 ML UDCUP PO PRN (16:30)
[2018-02-25] MEDS ORDERED: GuaiFENesin/D-METHORPHAN [SUGAR-FREE] 200-20MG/10 ML SYRUP UDCUP PO PRN (16:30)
[2018-02-25] MEDS ORDERED: PROMETHAZINE HCL 25 MG TABLET PO PRN (16:30)
[2018-02-25] MEDS: THIAMINE HCL 100 MG TABLET PO SCH (17:13)
[2018-02-25] MEDS ORDERED: PALIPERIDONE 3 MG ER TABLET PO SCH (21:00)
[2018-02-26 06:44] VITALS: BP 124/77
[2018-02-26 08:43] VITALS: BP 131/77
[2018-02-26] MEDS: LORazepam 2 MG TABLET PO PRN ×2 (10:08→17:15)
[2018-02-26] MEDS: MULTIVITAMINS WITH MINERALS, THERAPEUTIC TABLET PO SCH (10:08)
[2018-02-26] MEDS: THIAMINE HCL 100 MG TABLET PO SCH ×2 (10:08→17:14)
[2018-02-26] MEDS: FOLIC ACID 1 MG TABLET PO SCH (10:08)
[2018-02-26 16:16] VITALS: BP 116/67
[2018-02-26] MEDS ORDERED: ATOM25 PO (16:50)
[2018-02-26] MEDS ORDERED: PALI156D IM (16:50)
[2018-02-27 02:11] VITALS: BP 132/94
[2018-02-27 08:08] VITALS: BP 130/78
[2018-02-27] MEDS: FOLIC ACID 1 MG TABLET PO SCH (08:23)
[2018-02-27] MEDS: THIAMINE HCL 100 MG TABLET PO SCH (08:23)
[2018-02-27] MEDS: MULTIVITAMINS WITH MINERALS, THERAPEUTIC TABLET PO SCH (08:23)
[2018-02-27] MEDS ORDERED: ATOMOXETINE HCL 25 MG CAPSULE PO SCH (09:00)
[2018-03-01] MEDS ORDERED: PALIPERIDONE PALMITATE 156 MG/ML SYRINGE IM ONE (09:00)
== END 2018-02-27 13:30 | disposition home or self-care (01) | DRG 750 ==
LOC: EMS 14:25 → B3A 21:00
PROVIDERS: ADMIT Psychiatry & Neurology Psychiatry; ATTEND Psychiatry & Neurology Psychiatry
DX: F20.0 Paranoid schizophrenia (principal); Z91.19 Patient's noncompliance with other medical treatment and regimen; B18.2 Chronic viral hepatitis C; E78.5 Hyperlipidemia, unspecified; F17.200 Nicotine dependence, unspecified, uncomplicated; Z81.8 Family history of other mental and behavioral disorders; Z82.49 Family history of ischemic heart disease and other diseases of the circulatory system; Z82.5 Family history of asthma and other chronic lower respiratory diseases; Z91.5 Personal history of self-harm
CPT/HCPCS: 90471; 99285; G0480